=== PATIENT | male | born 1940 | race Hispanic/Latino ===

== ENCOUNTER 2016-11-24 17:00 | Inpatient (IN) | payer MEDICARE, BC ==
[2016-11-24 17:00] VITALS: BMI 25.4
--- NOTE | 2016-11-24 17:15 | C.PDOC ---
History Of Present Illness <Madhavi Novoa - Last Filed: 11/24/16 18:21> <Hermes Oliveira - Last Filed: 11/24/16 20:34> 76 y/o male w/PMHx of CAD, arrhythmia, s/p PTCA, pacemaker, on Coumadin, presents to ED for evaluation of constipation since this morning. Patient states that he has been trying to pass hard stool "for hours, sitting on the toilet and pushing" and after that noticed some rectal bleeding. Pt sts, " passed a little bit of hard stool but still feel there is some there". Otherwise , denies fever, chills, CP, SON, palpitation, abdominal pain, nausea, vomiting, hematemesis, back pain, UTI sx. Ambulate to ED for evaluation, not in any apparent distress. (Madhavi Novoa) History Per: Patient History/Exam Limitations: no limitations Onset/Duration Of Symptoms: Hrs Current Symptoms Are (Timing): Still Present Severity: None Associated Symptoms: Constipation. denies: Fever, Chills, Nausea, Vomiting, Diarrhea, Back Pain Recent travel outside of the [place]: No <Madhavi Novoa - Last Filed: 11/24/16 18:21> <Hermes Oliveira - Last Filed: 11/24/16 20:34> Time Seen by Provider: 11/24/16 17:15 Chief Complaint (Nursing): GI Problem Past Medical History Reviewed: Historical Data, Nursing Documentation, Vital Signs - Medical History PMH: Atrial Fibrillation, Cardia Arrhythmia (a flutter), CHF, COPD, Diabetes, HTN, Rheumatoid Arthritis Surgical History: Appendectomy, Coronary Stent, Pacemaker Family History: States: Unknown Family Hx - Social History Hx Tobacco Use: Yes Hx Alcohol Use: No Hx Substance Use: No - Immunization History Hx Tetanus Toxoid Vaccination: No Hx Influenza Vaccination: Yes Hx Pneumococcal Vaccination: Yes <Madhavi Novoa - Last Filed: 11/24/16 18:21> Review Of Systems Except As Marked, All Systems Reviewed And Found Negative. Constitutional: Negative for: Fever, Chills Cardiovascular: Negative for: Chest Pain Respiratory: Negative for: Cough, Shortness of Breath, Wheezing Gastrointestinal: Positive for: Abdominal Pain, Constipation, Hematochezia ( scant rectal bleeding as per patient). Negative for: Nausea, Vomiting, Diarrhea Genitourinary: Negative for: Dysuria Skin: Negative for: Rash <Madhavi Novoa - Last Filed: 11/24/16 18:21> Physical Exam - Physical Exam Appears: Well, Non-toxic, No Acute Distress Skin: Normal Color, Warm, Dry Head: Normacephalic Eye(s): bilateral: PERRL Nose: No Flaring Oral Mucosa: Moist Tongue: Normal Appearing Lips: Normal Appearing Throat: No Erythema, No Exudate Neck: Normal ROM, Supple Chest: Symmetrical Cardiovascular: Rhythm Regular, No Friction Rub, No JVD Respiratory: No Rales, No Rhonchi, No Wheezing Gastrointestinal/Abdominal: Soft, No Tenderness, No Distention, No Guarding, No Rebound Rectal: Rectal Tone (good), No Maroon Stool, No Melena, No Blood Streaked Stool , No Hemorrhoids, No Mass, Other (no gross blood ) Back: No CVA Tenderness Extremity: No Pedal Edema, Capillary Refill (< 2 sec.) Neurological/Psych: Oriented x3, Normal Speech, Normal Cognition <Madhavi Novoa - Last Filed: 11/24/16 18:21> ED Course And Treatment - Laboratory Results Result Diagrams: 11/24/16 17:42 11/24/16 17:42 Lab Interpretation: Abnormal O2 Sat by Pulse Oximetry: 100 (RA) Pulse Ox Interpretation: Normal Progress Note: Initailly, pt received enema, hydration with IVF. Blood work review, noted marked leukocystosis. INR- 3.8- theraputic. case discussed with ED attending and CT abd/plevis w/IV contrast order. At 19:00, case discussed with and care transfer. CT abd/pelvis, re-eval, dispo- pending. <Madhavi Novoa - Last Filed: 11/24/16 18:21> - Laboratory Results Result Diagrams: 11/24/16 17:42 11/24/16 17:42 <Hermes Oliveira - Last Filed: 11/24/16 20:34> Disposition <Madhavi Novoa - Last Filed: 11/24/16 18:21> Discussed With : Lexus Petty-Kasia Comment: accepted the pt on her service and took over the care at 8:30 PM Doctor Will See Patient In The: Hospital Counseled Patient/Family Regarding: Studies Performed, Diagnosis - Disposition Disposition Time: 19:00 - POA Present On Arrival: None <Hermes Oliveira - Last Filed: 11/24/16 20:34> - Disposition Disposition: HOSPITALIZED Condition: FAIR Forms: [facility] (Botswanan) - Clinical Impression Clinical Impression: Abdominal pain, Constipation, Rectal bleed, Acute diverticulitis - PA / CLINICAL APPEALS REVIEWER / Resident Statement MD/DO has reviewed & agrees with the documentation as recorded. - Scribe Statement The provider has reviewed the documentation as recorded by the Scribe <Madhavi Novoa - Last Filed: 11/24/16 18:21> <Hermes Oliveira - Last Filed: 11/24/16 20:34> - Scribe Statement Chetan Desai All medical record entries made by the Scribe were at my direction and personally dictated by me. I have reviewed the chart and agree that the record accurately reflects my personal performance of the history, physical exam, medical decision making, and the department course for this patient. I have also personally directed, reviewed, and agree with the discharge instructions and disposition.omar (Madhavi Novoa) Physician Patient Turnover Patient Signed Over To: Hermes Oliveira Handoff Comments: CT abd/pelvis, re-eavluation, disposition <Madhavi Novoa - Last Filed: 11/24/16 18:21> Decision To Admit <Madhavi Novoa - Last Filed: 11/24/16 18:21> - Pt Status Changed To: Hospital Disposition Of: Inpatient - Admit Certification Admit to Inpatient:: After my assessment, the patient will require hospitalization for at least two midnights. This is because of the severity of symptoms shown, intensity of services needed, and/or the medical risk in this patient being treated as an outpatient. - InPatient: Physician Admission Certification:: After my assessment, the patient will require hospitalization for at least two midnights. This is because of the severity of symptoms shown, intensity of services needed, and/or the medical risk in this patient being treated as an outpatient. - . Bed Request Type: Regular Admitting Physician: Lexus Herman <Hermes Oliveira - Last Filed: 11/24/16 20:34> - . Patient Diagnosis: Abdominal pain, Constipation, Rectal bleed, Acute diverticulitis
[2016-11-24] MEDS ORDERED: Sodium Chloride 0.9% 1,000 ML IV ONE (17:43)
[2016-11-24 17:51] LABS: BASO # 0.1 K/uL (0.0-0.2); BASO % 0.6 % (0.0-2.0); EOS # 0.2 K/uL (0.0-0.7); EOS % 1.1 % (0.0-4.0); HEMATOCRIT 42.3 % (35.0-51.0); LYMPH # 1.8 K/uL (1.0-4.3); LYMPH % 8.8 % (20.0-40.0); MEAN CELL VOLUME 92.1 fL (80.0-94.0); MEAN CORPUSCULAR HEMOGLOBIN 31.3 pg (27.0-31.0); MEAN PLATELET VOLUME 8.1 fL (7.2-11.7); MONO % 4.9 % (0.0-10.0); PLATELET COUNT 256 K/uL (130-400); RED CELL DISTRIBUTION WIDTH 13.6 % (11.5-14.5); WHITE BLOOD COUNT 20.6 K/uL (4.8-10.8)
[2016-11-24] MEDS ORDERED: Sodium Chloride 0.9% 1,000 ML ONE (17:54)
[2016-11-24 17:55] LABS: INR 3.8
[2016-11-24 17:58] LABS: CHLORIDE 103 mmol/L (98-107)
[2016-11-24 17:59] LABS: POTASSIUM 4.4 mmol/L (3.6-5.2); SODIUM 142 mmol/L (132-148)
[2016-11-24 18:01] LABS: ALB/GLOB RATIO 1.1 (1.0-2.1); ALKALINE PHOSPHATASE 58 U/L (38-126); AST/SGOT 32 U/L (17-59); BILIRUBIN,TOTAL 0.7 mg/dL (0.2-1.3); BLOOD UREA NITROGEN 28 mg/dL (9-20); CARBON DIOXIDE 29 mmol/L (22-30); GFR AFRICAN-AMERICAN > 60
[2016-11-24 18:02] LABS: ALT/SGPT 29 U/L (21-72); CALCIUM 10.3 mg/dl (8.6-10.4); GLUCOSE,RANDOM 99 mg/dL (75-110)
[2016-11-24 18:18] LABS: URINE BILIRUBIN NEGATIVE (NEGATIVE); URINE BLOOD NEGATIVE (NEGATIVE); URINE CALCIUM OXALATE CRYSTALS OCC /hpf (<OCC); URINE COLOR Yellow (YELLOW); URINE GLUCOSE (UA) NORMAL (Normal); URINE KETONE TRACE mg/dL (NEGATIVE); URINE LEUKOCYTE ESTERASE NEG Leu/uL (Negative); URINE PROTEIN 1+ mg/dL (NEGATIVE); URINE UROBILINOGEN NORMAL mg/dL (0.2-1.0); WBC URINE < 1 /hpf (0-5)
[2016-11-24 19:10] LABS: EOSINOPHIL 3 % (0-4); NEUTROPHIL 73 % (50-75); TOTAL CELLS COUNTED 100
[2016-11-24] MEDS ORDERED: Iohexol 350mg/ml 100 ML ONE (19:10)
[2016-11-24 19:11] LABS: LARGE PLATELETS PRESENT; PLATELET CLUMPS PRESENT
--- NOTE | 2016-11-24 20:26 | CT ---
EXAM: CT Abdomen and Pelvis With Intravenous Contrast EXAM DATE/TIME: Exam ordered 11/24/2016 6:19 PM CLINICAL HISTORY: 76 years old, male; Pain; Abdominal pain; Flank; Left lower quadrant (llq); Additional info: Llq pain TECHNIQUE: Axial computed tomography images of the abdomen and pelvis with intravenous contrast. All CT scans at this facility use one or more dose reduction techniques, viz.: automated exposure control; ma/kV adjustment per patient size (including targeted exams where dose is matched to indication; i.e. head); or iterative reconstruction technique. Coronal and sagittal reformatted images were created and reviewed. CONTRAST: 100 mL of omnipaque 350 administered intravenously. COMPARISON: No relevant prior studies available. FINDINGS: Lower thorax: There's a small hiatal hernia. A dual chamber pacemaker via left subclavian approach is noted. ABDOMEN: Liver: Unremarkable. No mass. Gallbladder and bile ducts: Unremarkable. No calcified stones. No ductal dilation. Pancreas: There is fatty replacement of the pancreas. No ductal dilation. Spleen: Unremarkable. No splenomegaly. Adrenals: Unremarkable. No mass. Kidneys and ureters: Unremarkable. No solid mass. No hydronephrosis. Stomach and bowel: There are scattered colonic diverticula. Minimal inflammatory changes noted around a section of the descending colon distally in the region of the diverticula. No obstruction. No mucosal thickening. Appendix: No findings to suggest acute appendicitis. PELVIS: Bladder: Unremarkable. No mass. Reproductive: The prostate measures 4.7 x 3.6 x 4.6 cm. ABDOMEN and PELVIS: Intraperitoneal space: No free air. No significant fluid collection. Bones/joints:There is a mild dextroscoliosis of the thoracolumbar spine with secondary degenerative changes. Increased density noted within the femoral heads bilaterally suggests underlying osteonecrosis. Soft tissues: There is a small left inguinal hernia containing fat. Vasculature: A coarse calcification is noted in the right hemipelvis (series 3 image 150).. This could represent a calcified lymph node or an area of old fat necrosis. Unremarkable. No abdominal aortic aneurysm. Lymph nodes: Unremarkable. No enlarged lymph nodes. IMPRESSION: 1. Left inguinal hernia containing a knuckle of fat. 2. Very mild inflammatory change surrounding a segment of the descending colon where there is a diverticula. This could represent a mild diverticulitis. 3. Small hiatal hernia. 4. Increased density of the femoral heads bilaterally suggests underlying osteonecrosis. Images were attached to this report and are available at [email or web address]
[2016-11-24] MEDS ORDERED: Ciprofloxacin 400mg/200ml D5W 400 MG/200 ML BAG IVPB STA (20:28)
[2016-11-24] MEDS ORDERED: metroNIDAZOLE IV 500 mg/100 ml 500 MG/100 ML BAG IVPB STA (20:31)
[2016-11-24] MEDS ORDERED: Ciprofloxacin 400mg/200ml D5W 400 MG/200 ML BAG IVPB ONE (21:08)
[2016-11-24] MEDS ORDERED: metroNIDAZOLE IV 500 mg/100 ml 500 MG/100 ML BAG ONE (21:09)
[2016-11-24] MEDS ORDERED: Sodium Chloride 0.45% 1,000 ML IV ONE (21:23)
[2016-11-24] MEDS: Sodium Chloride 0.45% 1,000 ML IV SCH (23:30)
[2016-11-25 03:51] LABS: RBC URINE 7 /hpf (0-3); URINE BILIRUBIN NEGATIVE (NEGATIVE); URINE BLOOD NEGATIVE (NEGATIVE); URINE COLOR Yellow (YELLOW); URINE GLUCOSE (UA) 1+ mg/dL (Normal); URINE KETONE NEGATIVE (NEGATIVE); URINE LEUKOCYTE ESTERASE NEG Leu/uL (Negative); URINE PROTEIN NEGATIVE (NEGATIVE); URINE UROBILINOGEN NORMAL mg/dL (0.2-1.0); WBC URINE < 1 /hpf (0-5)
[2016-11-25] MEDS: metroNIDAZOLE IV 500 mg/100 ml 500 MG/100 ML BAG IVPB SCH ×3 (05:30→22:35)
[2016-11-25 07:36] LABS: INR 4.9
[2016-11-25 07:43] LABS: BASO # 0.1 K/uL (0.0-0.2); BASO % 0.6 % (0.0-2.0); EOS # 0.1 K/uL (0.0-0.7); EOS % 1.1 % (0.0-4.0); HEMATOCRIT 35.6 % (35.0-51.0); LYMPH # 2.1 K/uL (1.0-4.3); LYMPH % 19.4 % (20.0-40.0); MEAN CORPUSCULAR HEMOGLOBIN 31.5 pg (27.0-31.0); MEAN PLATELET VOLUME 8.3 fL (7.2-11.7); MONO # 1.1 K/uL (0.0-0.8); MONO % 9.9 % (0.0-10.0); RED CELL DISTRIBUTION WIDTH 13.7 % (11.5-14.5); WHITE BLOOD COUNT 10.6 K/uL (4.8-10.8)
[2016-11-25 07:53] LABS: MEAN CELL VOLUME 90.1 fL (80.0-94.0)
[2016-11-25 07:54] LABS: CHLORIDE 103 mmol/L (98-107); POTASSIUM 3.7 mmol/L (3.6-5.2); SODIUM 138 mmol/L (132-148)
[2016-11-25 07:56] LABS: CARBON DIOXIDE 25 mmol/L (22-30); GFR AFRICAN-AMERICAN > 60
[2016-11-25 07:57] LABS: ALB/GLOB RATIO 1.1 (1.0-2.1); ALKALINE PHOSPHATASE 40 U/L (38-126); ALT/SGPT 29 U/L (21-72); AST/SGOT 27 U/L (17-59); BILIRUBIN,TOTAL 0.8 mg/dL (0.2-1.3); BLOOD UREA NITROGEN 20 mg/dL (9-20); CALCIUM 9.3 mg/dl (8.6-10.4); GLUCOSE,RANDOM 110 mg/dL (75-110); TOTAL PROTEIN 6.4 g/dL (6.3-8.3)
[2016-11-25] MEDS: Ciprofloxacin 400mg/200ml D5W 400 MG/200 ML BAG IVPB SCH ×2 (09:34→21:05)
[2016-11-25] MEDS ORDERED: BRINZOLAMIDE OU SCH (10:00)
[2016-11-25] MEDS ORDERED: TRAVATAN OU SCH (10:00)
--- NOTE | 2016-11-25 10:28 | RAD ---
HISTORY: COMPARISON: 04/20/2016. TECHNIQUE: Chest PA and lateral FINDINGS: LINES AND TUBES: None. LUNG AND PLEURA: The lungs are hyperinflated and there is peribronchial thickening with chronic changes in both lungs. There is mild pulmonary venous congestion. HEART AND MEDIASTINUM: The heart is not enlarged. There is prominent central vasculature. There is a left-sided dual lead transvenous permanent pacing device. The hilar and mediastinal contours are within normal limits. SKELETAL STRUCTURES: The bony structures are within normal limits for the patient's age. VISUALIZED UPPER ABDOMEN: Normal. OTHER FINDINGS: None. IMPRESSION: COPD. No acute findings. Mild pulmonary venous congestion. Upper
[2016-11-25] MEDS: Sodium Chloride 0.45% 1,000 ML IV SCH (12:18)
[2016-11-25] MEDS ORDERED: Albuterol HFA 90 mcg/actuation (8 g) INH PRN (15:59)
[2016-11-25] MEDS ORDERED: Sodium Chloride 0.45% 1,000 ML IV SCH (16:00)
--- NOTE | 2016-11-25 16:19 | CP.PCM.HP ---
History of Present Illness - History of Present Illness History of Present Illness: This is a 76 y/o male with history of CAD,s/p multiple stents in the past, s/p a few ablations for paroxysmal atrial fibrillation, diabetes mellitus, hypertension and COPD who was admitted through the ER because of abdominal pain. Patient claims that he woke up early on the morning of admission because of rectal discomfort. He claims that he felt very constipated but nothing came out despite 2 enemas at home. He also felt some abdominal pain, nausea and vomited 2x. He denies any fever, no chest pain, no palpitations but did feel slightly slightly short of breath. He thus went to the ER for further evaluation. In the ER he had some blood test and CT Scan of the abdomen that showed a markedly elevated WBC count and a possibility of acute diverticulitis on the CT Scan and was then admitted. Present on Admission - Present on Admission Any Indicators Present on Admission: No History Surgical Site Infection Following: None Review of Systems - Review of Systems All systems: reviewed and no additional remarkable complaints except - Constitutional Constitutional: Weight Loss - Cardiovascular Cardiovascular: Chest Pain, Dyspnea on Exertion, Palpitations, Rapid Heart Rate - Respiratory Respiratory: Dyspnea on Exertion - Gastrointestinal Gastrointestinal: Abdominal Pain, Constipation, Nausea, Vomiting - Genitourinary Genitourinary: Change in Urinary Stream Past Patient History - Infectious Disease Hx of Infectious Diseases: None - Past Medical History & Family History Past Medical History?: Yes - Past Social History Smoking Status: Heavy Smoker > 10 Cigarettes Daily Alcohol: Social Drugs: Denies Home Situation {Lives}: Alone - CARDIAC Hx Cardiac Disorders: Yes Hx Atrial Fibrillation: Yes Hx Cardia Arrhythmia: Yes (a flutter) Hx Congestive Heart Failure: Yes Hx Heart Attack: Yes Hx Hypertension: Yes Hx Pacemaker: Yes - PULMONARY Hx Respiratory Disorders: Yes Hx Chronic Obstructive Pulmonary Disease (COPD): Yes Hx Emphysema: Yes - NEUROLOGICAL Hx Neurological Disorder: No - HEENT Hx HEENT Problems: Yes Hx Cataracts: Yes (had sx left eye 12-08-00) Hx Glaucoma: Yes - RENAL Hx Chronic Kidney Disease: No Hx Dialysis: No - ENDOCRINE/METABOLIC Hx Endocrine Disorders: Yes Hx Diabetes Mellitus Type 1: Yes Hx Diabetes Mellitus Type 2: Yes - HEMATOLOGICAL/ONCOLOGICAL Hx Blood Disorders: No - MUSCULOSKELETAL/RHEUMATOLOGICAL Hx Falls: No - GASTROINTESTINAL Hx Gastrointestinal Disorders: Yes Hx Constipation: Yes Hx Diverticulitis: Yes Hx Gall Bladder Disease: Yes Hx Gastritis: Yes Hx Nausea: Yes Hx Vomiting: Yes - GENITOURINARY/GYNECOLOGICAL Hx Prostate Problems: Yes - PSYCHIATRIC Hx Psychophysiologic Disorder: No Hx Substance Use: No - SURGICAL HISTORY Hx Surgeries: Yes Hx Appendectomy: Yes Hx Cataract Extraction: Yes Hx Cardiac Catheterization: Yes Hx Cholecystectomy: Yes Hx Coronary Stent: Yes Hx Eye Surgery: Yes - ANESTHESIA Hx Anesthesia: Yes Hx Anesthesia Reactions: No Meds Allergies/Adverse Reactions: Allergies Allergy/AdvReac Type Severity Reaction Status Date / Time Penicillins Allergy Verified 11/24/16 17:12 Physical Exam - Constitutional Appears: No Acute Distress - Head Exam Head Exam: NORMAL INSPECTION - Eye Exam Eye Exam: Normal appearance - ENT Exam ENT Exam: Mucous Membranes Moist - Neck Exam Neck exam: Positive for: Normal Inspection - Respiratory Exam Respiratory Exam: Clear to Auscultation Bilateral, NORMAL BREATHING PATTERN - Cardiovascular Exam Cardiovascular Exam: REGULAR RHYTHM, +S1, +S2 - GI/Abdominal Exam GI & Abdominal Exam: Normal Bowel Sounds, Soft, Tenderness - Rectal Exam Rectal Exam: NORMAL INSPECTION Additional comments: no mass felt, rectal ampullae empty, no gross bleeding noted in the stools - Extremities Exam Extremities exam: Positive for: normal inspection, pedal pulses present - Back Exam Back exam: NORMAL INSPECTION - Neurological Exam Neurological exam: Alert, Normal Gait, Oriented x3, Reflexes Normal - Psychiatric Exam Psychiatric exam: Normal Affect, Normal Mood - Skin Skin Exam: Dry, Intact, Normal Color, Warm Results - Vital Signs Recent Vital Signs: Last Vital Signs Temp 98.1 F 11/25/16 08:00 Pulse 83 11/25/16 08:00 Resp 20 11/25/16 08:00 BP 112/61 11/25/16 08:00 Pulse Ox 99 11/25/16 08:00 - Labs Result Diagrams: 11/25/16 07:10 11/25/16 07:10 Labs: Laboratory Results - last 24 hr 11/24/16 11/24/16 11/25/16 21:18 22:01 02:22 WBC RBC Hgb Hct MCV MCH MCHC RDW Plt Count MPV Neut % (Auto) Lymph % (Auto) Bullock % (Auto) Eos % (Auto) Baso % (Auto) Neut # Lymph # Bullock # Eos # Baso # PT INR Sodium Potassium Chloride Carbon Dioxide Anion Gap BUN Creatinine Est GFR ( Amer) Est GFR (Non-Af Amer) POC Glucose (mg/dL) 41 L 152 H 225 H Random Glucose Hemoglobin A1c Calcium Total Bilirubin AST ALT Alkaline Phosphatase Total Protein Albumin Globulin Albumin/Globulin Ratio Urine Color Urine Clarity Urine pH Ur Specific [place] Urine Protein Urine Glucose (UA) Urine Ketones Urine Blood Urine Nitrate Urine Bilirubin Urine Urobilinogen Ur Leukocyte Esterase Urine WBC (Auto) Urine RBC (Auto) Ur Squamous Epith Cells 11/25/16 11/25/16 11/25/16 03:45 07:10 07:10 WBC 10.6 RBC 3.95 L Hgb 12.5 Hct 35.6 MCV 90.1 D MCH 31.5 H MCHC 35.0 RDW 13.7 Plt Count 211 MPV 8.3 Neut % (Auto) 69.0 Lymph % (Auto) 19.4 L Bullock % (Auto) 9.9 Eos % (Auto) 1.1 Baso % (Auto) 0.6 Neut # 7.3 H Lymph # 2.1 Bullock # 1.1 H Eos # 0.1 Baso # 0.1 PT 58.3 H* D INR 4.9 D Sodium Potassium Chloride Carbon Dioxide Anion Gap BUN Creatinine Est GFR ( Amer) Est GFR (Non-Af Amer) POC Glucose (mg/dL) Random Glucose Hemoglobin A1c Calcium Total Bilirubin AST ALT Alkaline Phosphatase Total Protein Albumin Globulin Albumin/Globulin Ratio Urine Color Yellow Urine Clarity Clear Urine pH 5.0 Ur Specific [place] > 1.060 H Urine Protein Negative Urine Glucose (UA) 1+ H Urine Ketones Negative Urine Blood Negative Urine Nitrate Negative Urine Bilirubin Negative Urine Urobilinogen Normal Ur Leukocyte Esterase Neg Urine WBC (Auto) < 1 Urine RBC (Auto) 7 H Ur Squamous Epith Cells < 1 11/25/16 11/25/16 11/25/16 07:10 07:10 07:21 WBC RBC Hgb Hct MCV MCH MCHC RDW Plt Count MPV Neut % (Auto) Lymph % (Auto) [place] % (Auto) Eos % (Auto) Baso % (Auto) Neut # Lymph # Bullock # Eos # Baso # PT INR Sodium 138 Potassium 3.7 Chloride 103 Carbon Dioxide 25 Anion Gap 14 BUN 20 Creatinine 0.9 Est GFR ( Amer) > 60 Est GFR (Non-Af Amer) > 60 POC Glucose (mg/dL) 101 Random Glucose 110 Hemoglobin A1c 6.9 H Calcium 9.3 Total Bilirubin 0.8 AST 27 ALT 29 Alkaline Phosphatase 40 Total Protein 6.4 Albumin 3.3 L D Globulin 3.1 Albumin/Globulin Ratio 1.1 Urine Color Urine Clarity Urine pH Ur Specific [place] Urine Protein Urine Glucose (UA) Urine Ketones Urine Blood Urine Nitrate Urine Bilirubin Urine Urobilinogen Ur Leukocyte Esterase Urine WBC (Auto) Urine RBC (Auto) Ur Squamous Epith Cells 11/25/16 11:30 WBC RBC Hgb Hct MCV MCH MCHC RDW Plt Count MPV Neut % (Auto) Lymph % (Auto) Bull[place] % (Auto) Eos % (Auto) Baso % (Auto) Neut # Lymph # Bull[place] # Eos # Baso # PT INR Sodium Potassium Chloride Carbon Dioxide Anion Gap BUN Creatinine Est GFR ( Amer) Est GFR (Non-Af Amer) POC Glucose (mg/dL) 199 H Random Glucose Hemoglobin A1c Calcium Total Bilirubin AST ALT Alkaline Phosphatase Total Protein Albumin Globulin Albumin/Globulin Ratio Urine Color Urine Clarity Urine pH Ur Specific [place] Urine Protein Urine Glucose (UA) Urine Ketones Urine Blood Urine Nitrate Urine Bilirubin Urine Urobilinogen Ur Leukocyte Esterase Urine WBC (Auto) Urine RBC (Auto) Ur Squamous Epith Cells Assessment & Plan - Assessment and Plan (Free Text) Assessment: 1) Acute Diverticulitis- Patient started on IV antibiotics- Cipro and Flagyl. Repeat WBC today is much lower. Started on liquid diet and tolerated well. Diet advanced to soft 1800 calorie diet. Will get GI consult. 2) Rectal Bleeding- no active bleeding at this time- probably due to Coumadin 3) CAD/ Cardiac arrhythmia- seems stable at this time. EKG not done yet but patient is asymtomatic from cardiac viewpoint at this time. 4) Diabetes Mellitus- on Accucheck and diabetic diet. Restarted on Glimepiride. May need to restart on insulin as previously given. 5) Hypertension- controlled on current meds 6) COPD- stable at this time 7) Elevated BUN with normal creatinine may be due to dehydration/hypovolemia Decision To Admit - Pt Status Changed To: Hospital Disposition Of: Inpatient - Admit Certification Admit to Inpatient:: After my assessment, the patient will require hospitalization for at least two midnights. This is because of the severity of symptoms shown, intensity of services needed, and/or the medical risk in this patient being treated as an outpatient. - InPatient: Physician Admission Certification:: After my assessment, the patient will require hospitalization for at least two midnights. This is because of the severity of symptoms shown, intensity of services needed, and/or the medical risk in this patient being treated as an outpatient. - . Bed Request Type: Regular Admitting Physician: Lexus Herman
--- NOTE | 2016-11-25 18:05 | CP.PCM.CON ---
History of Present Illness - History of Present Illness History of Present Illness: COVERING DR LANGLEY 76 yo W male well known to Dr Langley who reports awakening yesterday with severe constipation. He typically has hard bowel movements but goes daily. He strained to defecate and then used two enemas. This caused him to have two episodes of vomiting and noted increasing amounts of BRBPR dripping on the floor. The stool came out brown. He experienced rectal pain but no abdominal pain. Patient noted to have white count of 20K and CT scan showed a right inguinal hernia and mild stranding in descending colon in an area of diverticulosis. Patient feeling better and denies any abdominal pain. Still with pain in rectum. No further bleeding. Reports colonoscopy done around five years ago by Dr Langley. Review of Systems - Cardiovascular Cardiovascular: absent: Chest Pain, Chest Pain at Rest, Dyspnea, Dyspnea on Exertion, Edema - Respiratory Respiratory: absent: Cough, Dyspnea - Gastrointestinal Gastrointestinal: As Per HPI, Constipation, Hematochezia - Genitourinary Genitourinary: absent: Flank Pain, Hematuria, Pyuria Past Patient History - Infectious Disease Hx of Infectious Diseases: None - Past Medical History & Family History Past Medical History?: Yes - Past Social History Smoking Status: Heavy Smoker > 10 Cigarettes Daily Alcohol: None Drugs: Denies - CARDIAC Hx Cardiac Disorders: Yes Hx Atrial Fibrillation: Yes Hx Cardia Arrhythmia: Yes (a flutter) Hx Congestive Heart Failure: Yes Hx Hypertension: Yes Hx Pacemaker: Yes - PULMONARY Hx Respiratory Disorders: Yes Hx Chronic Obstructive Pulmonary Disease (COPD): Yes - NEUROLOGICAL Hx Neurological Disorder: No - HEENT Hx HEENT Problems: Yes Hx Cataracts: Yes (had sx left eye 12-08-00) Hx Glaucoma: Yes - RENAL Hx Chronic Kidney Disease: No Hx Dialysis: No - ENDOCRINE/METABOLIC Hx Endocrine Disorders: Yes Hx Diabetes Mellitus Type 1: Yes Hx Diabetes Mellitus Type 2: Yes - HEMATOLOGICAL/ONCOLOGICAL Hx Cirrhosis: No Hx Hepatitis A: No Hx Hepatitis B: No Hx Hepatitis C: No Hx Human Immunodeficiency Virus (HIV): No - MUSCULOSKELETAL/RHEUMATOLOGICAL Hx Falls: No - GASTROINTESTINAL Hx Clostridium Difficile: No Hx Colitis: No Hx Colostomy: No Hx Constipation: No Hx Crohn's Disease: No Hx Diarrhea: No Hx Diverticulitis: No Hx Esophageal Varices: No Hx Fatty Liver Disease: No Hx Gall Bladder Disease: No Hx Gastritis: No Hx Gastroesophageal Reflux: No Hx Hemorrhoids: No Hx Ileostomy: No Hx Irritable Bowel: No Hx Liver Failure: No Hx Nausea: No Hx Pancreatitis: No HX Swallowing Problems: No Hx Ulcer: No Hx Vomiting: No - PSYCHIATRIC Hx Substance Use: No - SURGICAL HISTORY Hx Surgeries: Yes Hx Appendectomy: Yes Hx Coronary Stent: Yes - ANESTHESIA Hx Anesthesia: Yes Hx Anesthesia Reactions: No Meds Allergies/Adverse Reactions: Allergies Allergy/AdvReac Type Severity Reaction Status Date / Time Penicillins Allergy Verified 11/24/16 17:12 - Medications Medications: Current Medications Albuterol (Ventolin Hfa 90 Mcg/Actuation (8 G)) 2 puff INH RQ6 PRN PRN Reason: Shortness of Breath Dorzolamide HCl (Trusopt) 0 ml OU BID [facility] Glimepiride (Amaryl) 4 mg PO BID [facility] Last Admin: 11/25/16 09:33 Dose: 4 mg Ciprofloxacin (Cipro 400mg/200ml Dsw) 400 mg in 200 mls @ 133 mls/hr IVPB Q12H [facility] Last Admin: 11/25/16 09:34 Dose: 133 mls/hr Metronidazole (Flagyl) 500 mg in 100 mls @ 100 mls/hr IVPB Q8 [facility] Last Admin: 11/25/16 14:58 Dose: 100 mls/hr Sodium Chloride (Sodium Chloride 0.45%) 1,000 mls @ 42 mls/hr IV .[id number] [facility] Latanoprost (Xalatan Opht) 0 ml OU HS [facility] Losartan Potassium (Cozaar) 100 mg PO DAILY [facility] Last Admin: 11/25/16 09:33 Dose: 100 mg Nebivolol (Bystolic) 10 mg PO DAILY [facility] Last Admin: 11/25/16 11:10 Dose: 10 mg Pneumococcal Polyvalent Vaccine (Pneumovax 23 Vaccine) 0.5 ml IM .ONCE ONE Stop: 11/26/16 10:01 Rosuvastatin Calcium (Crestor) 5 mg PO HS [facility] Fluticasone/Salmeterol (Advair Diskus 250/50) 1 puff INH RQ12 [facility] Physical Exam - Constitutional Appears: No Acute Distress - Head Exam Head Exam: ATRAUMATIC, NORMOCEPHALIC - Eye Exam Eye Exam: EOMI, PERRL - Respiratory Exam Respiratory Exam: Clear to Auscultation Bilateral, NORMAL BREATHING PATTERN - Cardiovascular Exam Cardiovascular Exam: REGULAR RHYTHM, +S1 - GI/Abdominal Exam GI & Abdominal Exam: Normal Bowel Sounds, Soft. absent: Distended, Mass, Organomegaly, Rebound, Tenderness - Rectal Exam Rectal Exam: NORMAL INSPECTION Additional comments: no blood or mass palapable. - Extremities Exam Extremities exam: Positive for: normal inspection. Negative for: calf tenderness, pedal edema - Neurological Exam Neurological exam: Alert, CN II-XII Intact, Oriented x3 - Psychiatric Exam Psychiatric exam: Normal Affect, Normal Mood - Skin Skin Exam: Dry, Warm Results - Vital Signs Recent Vital Signs: Last Vital Signs Temp 97.9 F 11/25/16 16:00 Pulse 85 11/25/16 16:00 Resp 20 11/25/16 16:00 BP 131/68 11/25/16 16:00 Pulse Ox 100 11/25/16 16:00 - Labs Result Diagrams: 11/26/16 08:15 11/26/16 08:15 Labs: Laboratory Results - last 24 hr 11/24/16 11/24/16 11/25/16 21:18 22:01 02:22 WBC RBC Hgb Hct MCV MCH MCHC RDW Plt Count MPV Neut % (Auto) Lymph % (Auto) [place] % (Auto) Eos % (Auto) Baso % (Auto) Neut # Lymph # [place] # Eos # Baso # PT INR Sodium Potassium Chloride Carbon Dioxide Anion Gap BUN Creatinine Est GFR ( Amer) Est GFR (Non-Af Amer) POC Glucose (mg/dL) 41 L 152 H 225 H Random Glucose Hemoglobin A1c Calcium Total Bilirubin AST ALT Alkaline Phosphatase Total Protein Albumin Globulin Albumin/Globulin Ratio Urine Color Urine Clarity Urine pH Ur Specific [place] Urine Protein Urine Glucose (UA) Urine Ketones Urine Blood Urine Nitrate Urine Bilirubin Urine Urobilinogen Ur Leukocyte Esterase Urine WBC (Auto) Urine RBC (Auto) Ur Squamous Epith Cells 11/25/16 11/25/16 11/25/16 03:45 07:10 07:10 WBC 10.6 RBC 3.95 L Hgb 12.5 Hct 35.6 MCV 90.1 D MCH 31.5 H MCHC 35.0 RDW 13.7 Plt Count 211 MPV 8.3 Neut % (Auto) 69.0 Lymph % (Auto) 19.4 L Island % (Auto) 9.9 Eos % (Auto) 1.1 Baso % (Auto) 0.6 Neut # 7.3 H Lymph # 2.1 Island # 1.1 H Eos # 0.1 Baso # 0.1 PT 58.3 H* D INR 4.9 D Sodium Potassium Chloride Carbon Dioxide Anion Gap BUN Creatinine Est GFR ( Amer) Est GFR (Non-Af Amer) POC Glucose (mg/dL) Random Glucose Hemoglobin A1c Calcium Total Bilirubin AST ALT Alkaline Phosphatase Total Protein Albumin Globulin Albumin/Globulin Ratio Urine Color Yellow Urine Clarity Clear Urine pH 5.0 Ur Specific [place] > 1.060 H Urine Protein Negative Urine Glucose (UA) 1+ H Urine Ketones Negative Urine Blood Negative Urine Nitrate Negative Urine Bilirubin Negative Urine Urobilinogen Normal Ur Leukocyte Esterase Neg Urine WBC (Auto) < 1 Urine RBC (Auto) 7 H Ur Squamous Epith Cells < 1 11/25/16 11/25/16 11/25/16 07:10 07:10 07:21 WBC RBC Hgb Hct MCV MCH MCHC RDW Plt Count MPV Neut % (Auto) Lymph % (Auto) Island % (Auto) Eos % (Auto) Baso % (Auto) Neut # Lymph # [place] # Eos # Baso # PT INR Sodium 138 Potassium 3.7 Chloride 103 Carbon Dioxide 25 Anion Gap 14 BUN 20 Creatinine 0.9 Est GFR ( Amer) > 60 Est GFR (Non-Af Amer) > 60 POC Glucose (mg/dL) 101 Random Glucose 110 Hemoglobin A1c 6.9 H Calcium 9.3 Total Bilirubin 0.8 AST 27 ALT 29 Alkaline Phosphatase 40 Total Protein 6.4 Albumin 3.3 L D Globulin 3.1 Albumin/Globulin Ratio 1.1 Urine Color Urine Clarity Urine pH Ur Specific [place] Urine Protein Urine Glucose (UA) Urine Ketones Urine Blood Urine Nitrate Urine Bilirubin Urine Urobilinogen Ur Leukocyte Esterase Urine WBC (Auto) Urine RBC (Auto) Ur Squamous Epith Cells 11/25/16 11/25/16 11:30 17:11 WBC RBC Hgb Hct MCV MCH MCHC RDW Plt Count MPV Neut % (Auto) Lymph % (Auto) Island % (Auto) Eos % (Auto) Baso % (Auto) Neut # Lymph # [place] # Eos # Baso # PT INR Sodium Potassium Chloride Carbon Dioxide Anion Gap BUN Creatinine Est GFR ( Amer) Est GFR (Non-Af Amer) POC Glucose (mg/dL) 199 H 134 H Random Glucose Hemoglobin A1c Calcium Total Bilirubin AST ALT Alkaline Phosphatase Total Protein Albumin Globulin Albumin/Globulin Ratio Urine Color Urine Clarity Urine pH Ur Specific [place] Urine Protein Urine Glucose (UA) Urine Ketones Urine Blood Urine Nitrate Urine Bilirubin Urine Urobilinogen Ur Leukocyte Esterase Urine WBC (Auto) Urine RBC (Auto) Ur Squamous Epith Cells - Imaging and Cardiology CT scan - abdomen Status: Image reviewed by me, Report reviewed by me CT scan - pelvis Status: Image reviewed by me, Report reviewed by me Assessment & Plan (1) Leukocytosis Assessment and Plan: Improving since antibiotics begun. Likely due to diverticulitis. Status: Acute (2) Coumadin toxicity Assessment and Plan: Hold Coumadin as per Dr Petty. Status: Acute (3) Acute diverticulitis Assessment and Plan: Elevated WBC and CT Scan consistent with acute diverticulitis. ?Rectal trauma/ fissure/ruptured hemorrhoid? (none visible to exam) Would make NPO or clear liquid diet only until pain free Agree with IV antibiotics. Would prefer Zosyn to Cipro but white count improving so will maintain current Rx. Status: Acute (4) Hematochezia Assessment and Plan: Possible due to anal fissure or ruptured hemorrhoid from straining and constipation/enema admin in setting of elevated INR. Monitor for drop in H/H or recurrence. Would defer colonoscopy at this time based on CT findings. No free air or perforation noted. Status: Acute (5) Proctalgia Assessment and Plan: Rectal pain likely due to trauma from straining/constipation/enema administration. No evidence of perforation seen on CT scan. Clinically improving. Status: Acute
[2016-11-25] MEDS ORDERED: Fluticasone-Salmeterol 250-50mcg Diskus INH SCH (20:00)
[2016-11-25] MEDS: Dorzolamide 2% Opht Sol 10ml OU SCH (22:30)
[2016-11-25] MEDS: Latanoprost 2.5 ml Opht Soln OU SCH (22:35)
[2016-11-26] MEDS: metroNIDAZOLE IV 500 mg/100 ml 500 MG/100 ML BAG IVPB SCH ×3 (05:30→21:29)
[2016-11-26 08:28] LABS: BASO # 0.1 K/uL (0.0-0.2); BASO % 0.8 % (0.0-2.0); EOS # 0.5 K/uL (0.0-0.7); HEMATOCRIT 36.2 % (35.0-51.0); LYMPH # 1.8 K/uL (1.0-4.3); LYMPH % 20.3 % (20.0-40.0); MEAN CELL VOLUME 91.2 fL (80.0-94.0); MEAN CORPUSCULAR HEMOGLOBIN 31.4 pg (27.0-31.0); MEAN CORPUSCULAR HGB CONC 34.5 g/dL (33.0-37.0); MEAN PLATELET VOLUME 8.2 fL (7.2-11.7); MONO # 0.8 K/uL (0.0-0.8); MONO % 8.9 % (0.0-10.0); RED CELL DISTRIBUTION WIDTH 13.6 % (11.5-14.5); WHITE BLOOD COUNT 9.1 K/uL (4.8-10.8)
[2016-11-26 08:29] LABS: INR 3.6
[2016-11-26 08:48] LABS: CHLORIDE 104 mmol/L (98-107); SODIUM 139 mmol/L (132-148)
[2016-11-26 08:50] LABS: AST/SGOT 30 U/L (17-59); BILIRUBIN,TOTAL 0.9 mg/dL (0.2-1.3); CARBON DIOXIDE 24 mmol/L (22-30); GFR AFRICAN-AMERICAN > 60
[2016-11-26 08:51] LABS: ALB/GLOB RATIO 1.1 (1.0-2.1); ALKALINE PHOSPHATASE 43 U/L (38-126); ALT/SGPT 34 U/L (21-72); BLOOD UREA NITROGEN 18 mg/dL (9-20); CALCIUM 9.3 mg/dl (8.6-10.4); GLUCOSE,RANDOM 124 mg/dL (75-110); TOTAL PROTEIN 6.7 g/dL (6.3-8.3)
[2016-11-26] MEDS: Ciprofloxacin 400mg/200ml D5W 400 MG/200 ML BAG IVPB SCH ×2 (09:18→21:20)
[2016-11-26] MEDS ORDERED: Pneumococcal 23-Valent Vaccine IM ONE (10:00)
[2016-11-26] MEDS: Dorzolamide 2% Opht Sol 10ml OU SCH ×2 (10:25→18:21)
--- NOTE | 2016-11-26 13:28 | CP.PCM.PN ---
Subjective - Date & Time of Evaluation Date of Evaluation: 11/26/16 Time of Evaluation: 13:26 - Subjective Subjective: Patient still with some rectal discomfort but denies abdominal pain or bleeding Tolerating diet as of now. Leukocytosis has resolved. Objective - Vital Signs/Intake and Output Vital Signs (last 24 hours): Temp Pulse Resp BP Pulse Ox 98.5 F 67 20 136/73 98 11/26/16 08:26 11/26/16 08:26 11/26/16 08:26 11/26/16 08:26 11/26/16 08:26 Intake and Output: 11/26/16 11/26/16 06:59 18:59 Intake Total 1684 936 Output Total 600 1400 Balance 1084 -464 - Medications Medications: Current Medications Albuterol (Ventolin Hfa 90 Mcg/Actuation (8 G)) 2 puff INH RQ6 PRN PRN Reason: Shortness of Breath Dorzolamide HCl (Trusopt) 0 ml OU BID [facility] Last Admin: 11/26/16 10:25 Dose: 1 g Glimepiride (Amaryl) 4 mg PO BID [facility] Last Admin: 11/26/16 10:20 Dose: 4 mg Ciprofloxacin (Cipro 400mg/200ml Dsw) 400 mg in 200 mls @ 133 mls/hr IVPB Q12H [facility] Last Admin: 11/26/16 09:18 Dose: 133 mls/hr Metronidazole (Flagyl) 500 mg in 100 mls @ 100 mls/hr IVPB Q8 [facility] Last Admin: 11/26/16 05:30 Dose: 100 mls/hr Latanoprost (Xalatan Opht) 0 ml OU HS [facility] Last Admin: 11/25/16 22:35 Dose: 2.5 ml Losartan Potassium (Cozaar) 100 mg PO DAILY [facility] Last Admin: 11/26/16 10:17 Dose: 100 mg Nebivolol (Bystolic) 10 mg PO DAILY [facility] Last Admin: 11/26/16 10:17 Dose: 10 mg Rosuvastatin Calcium (Crestor) 5 mg PO HS [facility] Last Admin: 11/25/16 23:33 Dose: 5 mg Fluticasone/Salmeterol (Advair Diskus 250/50) 1 puff INH RQ12 [facility] - Labs Labs: 11/26/16 08:15 11/26/16 08:15 PT 42.8 SECONDS (9.7-12.2) H* D 11/26/16 08:15 INR 3.6 D 11/26/16 08:15 APTT 51 SECONDS (21-34) H 11/24/16 17:42 - Constitutional Appears: No Acute Distress - Head Exam Head Exam: ATRAUMATIC, NORMOCEPHALIC - Eye Exam Eye Exam: EOMI, PERRL - Respiratory Exam Respiratory Exam: Clear to Ausculation Bilateral, NORMAL BREATHING PATTERN - Cardiovascular Exam Cardiovascular Exam: REGULAR RHYTHM, +S1 - GI/Abdominal Exam GI & Abdominal Exam: Soft, Normal Bowel Sounds. absent: Distended, Guarding, Tenderness, Mass, Organomegaly, Rebound - Rectal Exam Rectal Exam: NORMAL INSPECTION Additional comments: Exam repeated today. - Extremities Exam Extremities Exam: Normal Inspection. absent: Pedal Edema, Tenderness Assessment and Plan (1) Leukocytosis Status: Resolved (2) Coumadin toxicity Assessment & Plan: Improving but still INR>3.0 Status: Acute (3) Acute diverticulitis Assessment & Plan: Clinically improved though patient has not had any LLQ or flank pain. Symptoms only within the rectum. Constipation may have precipitated the findings of CT SCan Continue Hernando and yl Consider changing to po tomorrow and discharge on 10 days of total treatment. Colonoscopy by Dr Jenkins as outpatient in 8 weeks or sooner for recurrent bleeding. Status: Acute (4) Hematochezia Assessment & Plan: Likely from rupture of hemorrhoid from straining in the setting of Coumadin toxicity. No further bleeding. Status: Acute (5) Proctalgia Assessment & Plan: May be related to rectal trauma from straining, constipation, enema use?? Sitz baths bid. Stool softeners. Status: Acute
--- NOTE | 2016-11-26 14:33 | CP.PCM.PN ---
Subjective - Date & Time of Evaluation Date of Evaluation: 11/26/16 Time of Evaluation: 14:15 - Subjective Subjective: -GI consult noted and appreciated -Patient continues to have some rectal discomfort, passing gas but no b.m. yet -no abdominal pain, rectal bleeding, no nausea and vomiting -tolerated diet well Objective - Vital Signs/Intake and Output Vital Signs (last 24 hours): Temp Pulse Resp BP Pulse Ox 98.5 F 67 20 136/73 98 11/26/16 08:26 11/26/16 08:26 11/26/16 08:26 11/26/16 08:26 11/26/16 08:26 Intake and Output: 11/26/16 11/26/16 06:59 18:59 Intake Total 1684 936 Output Total 600 1400 Balance 1084 -464 - Medications Medications: Current Medications Albuterol (Ventolin Hfa 90 Mcg/Actuation (8 G)) 2 puff INH RQ6 PRN PRN Reason: Shortness of Breath Docusate Sodium (Colace) 100 mg PO BID [facility] Dorzolamide HCl (Trusopt) 0 ml OU BID [facility] Last Admin: 11/26/16 10:25 Dose: 1 g Glimepiride (Amaryl) 4 mg PO BID [facility] Last Admin: 11/26/16 10:20 Dose: 4 mg Ciprofloxacin (Cipro 400mg/200ml Dsw) 400 mg in 200 mls @ 133 mls/hr IVPB Q12H [facility] Last Admin: 11/26/16 09:18 Dose: 133 mls/hr Metronidazole (Flagyl) 500 mg in 100 mls @ 100 mls/hr IVPB Q8 [facility] Last Admin: 11/26/16 13:30 Dose: 100 mls/hr Latanoprost (Xalatan Opht) 0 ml OU HS [facility] Last Admin: 11/25/16 22:35 Dose: 2.5 ml Losartan Potassium (Cozaar) 100 mg PO DAILY [facility] Last Admin: 11/26/16 10:17 Dose: 100 mg Nebivolol (Bystolic) 10 mg PO DAILY [facility] Last Admin: 11/26/16 10:17 Dose: 10 mg Rosuvastatin Calcium (Crestor) 5 mg PO HS [facility] Last Admin: 11/25/16 23:33 Dose: 5 mg Fluticasone/Salmeterol (Advair Diskus 250/50) 1 puff INH RQ12 [facility] - Labs Labs: 11/26/16 08:15 11/26/16 08:15 PT 42.8 SECONDS (9.7-12.2) H* D 11/26/16 08:15 INR 3.6 D 11/26/16 08:15 APTT 51 SECONDS (21-34) H 11/24/16 17:42 - Constitutional Appears: No Acute Distress - Head Exam Head Exam: NORMAL INSPECTION - Eye Exam Eye Exam: Normal appearance - ENT Exam ENT Exam: Normal Exam - Neck Exam Neck Exam: Normal Inspection - Respiratory Exam Respiratory Exam: Clear to Ausculation Bilateral, NORMAL BREATHING PATTERN - Cardiovascular Exam Cardiovascular Exam: REGULAR RHYTHM, RRR, +S1, +S2 - GI/Abdominal Exam GI & Abdominal Exam: Soft, Normal Bowel Sounds - Extremities Exam Extremities Exam: Normal Inspection - Neurological Exam Neurological Exam: Alert, Awake, Normal Gait, Oriented x3 - Psychiatric Exam Psychiatric exam: Normal Affect, Normal Mood - Skin Skin Exam: Dry, Intact, Normal Color, Warm Assessment and Plan - Assessment and Plan (Free Text) Assessment: 1) Acute Diverticulitis- GI consult noted and appreciated. Continue IV antibiotics for now. 2) Rectal Bleeding-resolved- will need colonoscopy in the near future for further evaluation 3) CAD/ Cardiac arrhythmia- seems stable at this time. EKG not done yet but patient is asymtomatic from cardiac viewpoint at this time. 4) Diabetes Mellitus- on Accucheck and diabetic diet. Restarted on Glimepiride. May need to restart on insulin as previously given. 5) Hypertension- controlled on current meds 6) COPD- stable at this time 7) Elevated BUN with normal creatinine-resolved
[2016-11-26] MEDS: Latanoprost 2.5 ml Opht Soln OU SCH (21:29)
[2016-11-27] MEDS: metroNIDAZOLE IV 500 mg/100 ml 500 MG/100 ML BAG IVPB SCH ×3 (05:35→21:32)
[2016-11-27 07:52] LABS: INR 2.1
[2016-11-27] MEDS: Dorzolamide 2% Opht Sol 10ml OU SCH ×2 (09:27→18:06)
[2016-11-27] MEDS: Ciprofloxacin 400mg/200ml D5W 400 MG/200 ML BAG IVPB SCH ×2 (09:45→21:23)
--- NOTE | 2016-11-27 13:17 | CP.PCM.PN ---
Subjective - Date & Time of Evaluation Date of Evaluation: 11/27/16 Time of Evaluation: 13:14 - Subjective Subjective: COVERING DR LANGLEY Patient still with no bowel movement since admission. No bleeding. c/o swelling in Left groin. Rectal pain persists but refusing sitz baths. Objective - Vital Signs/Intake and Output Vital Signs (last 24 hours): Temp Pulse Resp BP Pulse Ox 97.8 F 89 20 155/77 H 98 11/27/16 08:22 11/27/16 08:22 11/27/16 08:22 11/27/16 08:22 11/27/16 08:22 Intake and Output: 11/27/16 11/27/16 06:59 18:59 Intake Total 700 800 Balance 700 800 - Medications Medications: Current Medications Albuterol (Ventolin Hfa 90 Mcg/Actuation (8 G)) 2 puff INH RQ6 PRN PRN Reason: Shortness of Breath Docusate Sodium (Colace) 100 mg PO BID [facility] Last Admin: 11/27/16 09:25 Dose: 100 mg Dorzolamide HCl (Trusopt) 0 ml OU BID [facility] Last Admin: 11/27/16 09:27 Dose: 1 drop Glimepiride (Amaryl) 4 mg PO BID [facility] Last Admin: 11/27/16 10:05 Dose: 4 mg Ciprofloxacin (Cipro 400mg/200ml Dsw) 400 mg in 200 mls @ 133 mls/hr IVPB Q12H [facility] Last Admin: 11/27/16 09:45 Dose: 133 mls/hr Metronidazole (Flagyl) 500 mg in 100 mls @ 100 mls/hr IVPB Q8 [facility] Last Admin: 11/27/16 05:35 Dose: 100 mls/hr Latanoprost (Xalatan Opht) 0 ml OU HS [facility] Last Admin: 11/26/16 21:29 Dose: 2.5 ml Losartan Potassium (Cozaar) 100 mg PO DAILY [facility] Last Admin: 11/27/16 09:26 Dose: 100 mg Nebivolol (Bystolic) 10 mg PO DAILY [facility] Last Admin: 11/27/16 09:27 Dose: 10 mg Rosuvastatin Calcium (Crestor) 5 mg PO HS [facility] Last Admin: 11/26/16 21:30 Dose: 5 mg Fluticasone/Salmeterol (Advair Diskus 250/50) 1 puff INH RQ12 [facility] - Labs Labs: 11/26/16 08:15 11/26/16 08:15 PT 24.6 SECONDS (9.7-12.2) H D 11/27/16 07:28 INR 2.1 D 11/27/16 07:28 APTT 51 SECONDS (21-34) H 11/24/16 17:42 - Constitutional Appears: No Acute Distress - Head Exam Head Exam: ATRAUMATIC, NORMOCEPHALIC - Respiratory Exam Respiratory Exam: Clear to Ausculation Bilateral, NORMAL BREATHING PATTERN - Cardiovascular Exam Cardiovascular Exam: REGULAR RHYTHM, +S1 - GI/Abdominal Exam GI & Abdominal Exam: Soft, Hernia, Normal Bowel Sounds. absent: Tenderness Additional comments: Bulging left inguinal hernia, reducible. Site of prior repair apparent. - Rectal Exam Rectal Exam: Deferred - Extremities Exam Extremities Exam: Normal Inspection Assessment and Plan (1) Leukocytosis Assessment & Plan: resolved Status: Resolved (2) Coumadin toxicity Assessment & Plan: INR now 2.1 and in therapeutic range Resume Coumadin as per Cardiology Status: Acute (3) Acute diverticulitis Assessment & Plan: Clinically asymptomatic but WBC responded to antibiotics Consider change to po Cipro and Flagyl in preparation for discharge Lactulose 30cc hs Colonoscopy when medically stable in approx 8 weeks. Follow up with Dr Langley if discharge planned for today. 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 Can have elective Surgical Consultation as needed. Unlikely to be source of current symptoms. Status: Chronic
[2016-11-27] MEDS: Latanoprost 2.5 ml Opht Soln OU SCH (21:24)
[2016-11-28] MEDS: metroNIDAZOLE IV 500 mg/100 ml 500 MG/100 ML BAG IVPB SCH ×2 (06:03→14:32)
[2016-11-28 07:58] VITALS: RESP 20
[2016-11-28 08:18] LABS: INR 1.7
[2016-11-28] MEDS: Ciprofloxacin 400mg/200ml D5W 400 MG/200 ML BAG IVPB SCH (10:05)
[2016-11-28] MEDS: Dorzolamide 2% Opht Sol 10ml OU SCH ×2 (10:58→18:11)
--- NOTE | 2016-11-28 11:44 | CP.PCM.PN ---
Subjective - Date & Time of Evaluation Date of Evaluation: 11/28/16 Time of Evaluation: 11:41 - Subjective Subjective: Patient denies having nausea, vomiting, abdominal pain. He has a sensation of pressure in the rectum. He has not had a bowel movement since admission, but he has not noted any additional bleeding. Objective - Vital Signs/Intake and Output Vital Signs (last 24 hours): Temp Pulse Resp BP Pulse Ox 98.2 F 75 20 121/67 98 11/28/16 07:00 11/28/16 07:00 11/28/16 07:00 11/28/16 07:00 11/28/16 07:00 Intake and Output: 11/28/16 11/28/16 06:59 18:59 Intake Total 1050 Balance 1050 - Medications Medications: Current Medications Albuterol (Ventolin Hfa 90 Mcg/Actuation (8 G)) 2 puff INH RQ6 PRN PRN Reason: Shortness of Breath Docusate Sodium (Colace) 100 mg PO BID [facility] Last Admin: 11/28/16 10:12 Dose: 100 mg Dorzolamide HCl (Trusopt) 0 ml OU BID [facility] Last Admin: 11/28/16 10:58 Dose: 1 drop Glimepiride (Amaryl) 4 mg PO BID [facility] Last Admin: 11/28/16 10:12 Dose: 4 mg Ciprofloxacin (Cipro 400mg/200ml Dsw) 400 mg in 200 mls @ 133 mls/hr IVPB Q12H [facility] Last Admin: 11/28/16 10:05 Dose: 133 mls/hr Metronidazole (Flagyl) 500 mg in 100 mls @ 100 mls/hr IVPB Q8 [facility] Last Admin: 11/28/16 06:03 Dose: 100 mls/hr Lactulose (Enulose) 20 gm PO [facility] Last Admin: 11/27/16 21:23 Dose: 20 gm Latanoprost (Xalatan Opht) 0 ml OU [facility] Last Admin: 11/27/16 21:24 Dose: 2.5 ml Losartan Potassium (Cozaar) 100 mg PO DAILY [facility] Last Admin: 11/28/16 10:13 Dose: 100 mg Nebivolol (Bystolic) 10 mg PO DAILY [facility] Last Admin: 11/28/16 10:17 Dose: 10 mg Rosuvastatin Calcium (Crestor) 5 mg PO [facility] Last Admin: 11/27/16 21:24 Dose: 5 mg Fluticasone/Salmeterol (Advair Diskus 250/50) 1 puff INH RQ12 [facility] - Labs Labs: 11/26/16 08:15 11/26/16 08:15 PT 19.4 SECONDS (9.7-12.2) H D 11/28/16 07:49 INR 1.7 11/28/16 07:49 APTT 51 SECONDS (21-34) H 11/24/16 17:42 - Constitutional Appears: No Acute Distress - Head Exam Head Exam: ATRAUMATIC, NORMOCEPHALIC - Eye Exam Eye Exam: EOMI, PERRL - Neck Exam Neck Exam: absent: Lymphadenopathy, Thyromegaly - Respiratory Exam Respiratory Exam: NORMAL BREATHING PATTERN. absent: Rales, Rhonchi, Wheezes - Cardiovascular Exam Cardiovascular Exam: REGULAR RHYTHM, +S1, +S2. absent: Gallop, Rubs, Murmur - GI/Abdominal Exam GI & Abdominal Exam: Soft, Normal Bowel Sounds. absent: Tenderness, Mass, Organomegaly - Rectal Exam Rectal Exam: Deferred - Extremities Exam Extremities Exam: absent: Calf Tenderness, Pedal Edema Assessment and Plan (1) Hematochezia Assessment & Plan: Patient has not had any further bleeding, but he has not had a bowel movement since admission, even after Colace and lactulose were administered. CT scan raised the possibility of diverticulitis. Will repeat the CT scan. Status: Acute
[2016-11-28] MEDS ORDERED: Iohexol 240 (50 ml) PO ONE (12:45)
[2016-11-28] MEDS ORDERED: Iodixanol 320 MG/ML 100 ML BOTTLE IV ONE ×2 (14:26→14:40)
--- NOTE | 2016-11-28 16:00 | CT ---
PROCEDURE: CT Abdomen and Pelvis with oral and IV contrast. HISTORY: Follow up diverticulitis; rule out obstruction COMPARISON: CT abdomen and pelvis with IV contrast performed 11/24/16 TECHNIQUE: Contiguous axial images of the abdomen and pelvis. Oral and IV contrast was administered. Coronal and Sagittal reformats generated and reviewed. Contrast dose: 100 mL Visipaque Radiation dose: Total exam DLP = 352.75 mGy-cm. This CT exam was performed using one or more of the following dose reduction techniques: Automated exposure control, adjustment of the mA and/or kV according to patient size, and/or use of iterative reconstruction technique. FINDINGS: LOWER THORAX: No visible consolidation, pleural effusion, or pneumothorax. Small hiatal hernia/distal esophageal wall thickening. LIVER: Hypoattenuation of the liver compatible with hepatic steatosis. GALLBLADDER AND BILE DUCTS: Unremarkable. PANCREAS: Atrophic pancreas. SPLEEN: Unremarkable. ADRENALS: Unremarkable. KIDNEYS AND URETERS: The kidneys enhance symmetrically. No hydronephrosis or obstructing renal calculus. BLADDER: The urinary bladder appears unremarkable. REPRODUCTIVE: Enlarged prostate gland. APPENDIX: No secondary signs of acute appendicitis. BOWEL: The stomach is nondistended. The bowel loops appear within normal limits of caliber without evidence of intestinal obstruction. Moderate to severe constipation. PERITONEUM: No significant free fluid. No definite free air. LYMPH NODES: No bulky lymphadenopathy identified. VASCULATURE: No aortic aneurysm. BONES: Multilevel degenerative changes. Osseous demineralization. Scoliosis. Increased density involving bilateral femoral heads suggests osteonecrosis. OTHER FINDINGS: Small fat containing left inguinal hernia. Coarse calcification within the right hemipelvis (series 3, image 139). Possibly calcified lymph node or region of remote fat necrosis. IMPRESSION: Moderate to severe constipation. Diverticulosis without definite CT evidence of acute diverticulitis. Hepatic steatosis. Enlarged prostate gland. Recommend correlation with PSA. Increased density involving bilateral femoral heads suggests osteonecrosis. Additional findings as above.
[2016-11-28 17:05] VITALS: BP 132/84; PULSE 91; TEMP 97.4; O2SAT 99
--- NOTE | 2016-11-28 17:42 | CP.PCM.DIS ---
Provider - Provider Date of Admission: 11/24/16 20:32 Attending physician: Lexus Herman MD Primary care physician: Virgil Consults: Donald Jenkins Time Spent in preparation of Discharge (in minutes): 45 Diagnosis - Discharge Diagnosis (1) Acute diverticulitis Status: Acute Priority: High Comment: Continue with po Cipro and Flagyl for 3 more days then d/c. (2) Hematochezia Status: Resolved Priority: Medium Comment: No further bleeding. Will need follow up GI consult OP for possible colonoscopy. (3) Coumadin toxicity Status: Resolved Priority: Medium Comment: Patient off Coumadin and Plavix since admission and latest INR is 1.7. Will resume lower dose while still on Cipro and Flagyl and go back to regular dose after antibiotics are finished. (4) Constipation Status: Resolved Priority: Medium Comment: Finally had bm after stool softeners, laxatives were given. Ct Scan showed oderate constipation. For follow up evalluation with GI for possible colonoscopy OP. (5) Dehydration Status: Resolved Priority: Low (6) Diabetes mellitus Status: Chronic Priority: Low Comment: Controlled on current meds. Continue same. (7) Essential (primary) hypertension Status: Chronic Priority: Low Comment: Controlled on current meds. (8) CAD (coronary artery disease) Status: Chronic Comment: Stable. (9) Cardiac arrhythmia Status: Resolved Priority: Low Comment: Controlled on current meds. Hospital Course - Lab Results Lab Results: Micro Results 11/25/16 01:30 Urine Urine Culture - Final No Growth (<1,000 CFU/ML) Most Recent Lab Values WBC 9.1 K/uL (4.8-10.8) 11/26/16 08:15 RBC 3.97 Mil/uL (4.40-5.90) L 11/26/16 08:15 Hgb 12.5 g/dL (12.0-18.0) 11/26/16 08:15 Hct 36.2 % (35.0-51.0) 11/26/16 08:15 MCV 91.2 fL (80.0-94.0) 11/26/16 08:15 MCH 31.4 pg (27.0-31.0) H 11/26/16 08:15 MCHC 34.5 g/dL (33.0-37.0) 11/26/16 08:15 RDW 13.6 % (11.5-14.5) 11/26/16 08:15 Plt Count 202 K/uL (130-400) 11/26/16 08:15 MPV 8.2 fL (7.2-11.7) 11/26/16 08:15 Neut % (Auto) 64.0 % (50.0-75.0) 11/26/16 08:15 Lymph % (Auto) 20.3 % (20.0-40.0) 11/26/16 08:15 [place] % (Auto) 8.9 % (0.0-10.0) 11/26/16 08:15 Eos % (Auto) 6.0 % (0.0-4.0) H 11/26/16 08:15 Baso % (Auto) 0.8 % (0.0-2.0) 11/26/16 08:15 Neut # 5.8 K/uL (1.8-7.0) 11/26/16 08:15 Lymph # 1.8 K/uL (1.0-4.3) 11/26/16 08:15 [place] # 0.8 K/uL (0.0-0.8) 11/26/16 08:15 Eos # 0.5 K/uL (0.0-0.7) 11/26/16 08:15 Baso # 0.1 K/uL (0.0-0.2) 11/26/16 08:15 Neutrophils % (Manual) 73 % (50-75) 11/24/16 17:42 Band Neutrophils % 6 % (0-2) H 11/24/16 17:42 Lymphocytes % (Manual) 8 % (20-40) L 11/24/16 17:42 Monocytes % (Manual) 10 % (0-10) 11/24/16 17:42 Eosinophils % (Manual) 3 % (0-4) 11/24/16 17:42 Platelet Estimate Normal (NORMAL) 11/24/16 17:42 Plt Clumps, EDTA Present 11/24/16 17:42 Large Platelets Present 11/24/16 17:42 Microcytosis (manual) Slight 11/24/16 17:42 ESR 10 mm/hr (0-15) 11/26/16 08:15 PT 19.4 SECONDS (9.7-12.2) H D 11/28/16 07:49 INR 1.7 11/28/16 07:49 APTT 51 SECONDS (21-34) H 11/24/16 17:42 Sodium 139 mmol/L (132-148) 11/26/16 08:15 Potassium 4.0 mmol/L (3.6-5.2) 11/26/16 08:15 Chloride 104 mmol/L (98-107) 11/26/16 08:15 Carbon Dioxide 24 mmol/L (22-30) 11/26/16 08:15 Anion Gap 15 (10-20) 11/26/16 08:15 BUN 18 mg/dL (9-20) 11/26/16 08:15 Creatinine 0.9 MG/DL (0.8-1.5) 11/26/16 08:15 Est GFR ( Amer) > 60 11/26/16 08:15 Est GFR (Non-Af Amer) > 60 11/26/16 08:15 POC Glucose (mg/dL) 75 mg/dL (65-110) 11/28/16 16:20 Random Glucose 124 mg/dL (75-110) H 11/26/16 08:15 Hemoglobin A1c 6.9 % (4.2-6.5) H 11/25/16 07:10 Calcium 9.3 mg/dl (8.6-10.4) 11/26/16 08:15 Total Bilirubin 0.9 mg/dL (0.2-1.3) 11/26/16 08:15 AST 30 U/L (17-59) 11/26/16 08:15 ALT 34 U/L (21-72) 11/26/16 08:15 Alkaline Phosphatase 43 U/L (38-126) 11/26/16 08:15 Total Protein 6.7 g/dL (6.3-8.3) 11/26/16 08:15 Albumin 3.5 g/dL (3.5-5.0) 11/26/16 08:15 Globulin 3.2 gm/dL (2.2-3.9) 11/26/16 08:15 Albumin/Globulin Ratio 1.1 (1.0-2.1) 11/26/16 08:15 Lipase 40 U/L (23-300) 11/24/16 17:42 Urine Color Yellow (YELLOW) 11/25/16 03:45 Urine Clarity Clear (Clear) 11/25/16 03:45 Urine pH 5.0 (5.0-8.0) 11/25/16 03:45 Ur Specific [place] > 1.060 (1.003-1.030) H 11/25/16 03:45 Urine Protein Negative mg/dL (NEGATIVE) 11/25/16 03:45 Urine Glucose (UA) 1+ mg/dL (Normal) H 11/25/16 03:45 Urine Ketones Negative mg/dL (NEGATIVE) 11/25/16 03:45 Urine Blood Negative (NEGATIVE) 11/25/16 03:45 Urine Nitrate Negative (NEGATIVE) 11/25/16 03:45 Urine Bilirubin Negative (NEGATIVE) 11/25/16 03:45 Urine Urobilinogen Normal mg/dL (0.2-1.0) 11/25/16 03:45 Ur Leukocyte Esterase Neg [place]/uL (Negative) 11/25/16 03:45 Urine WBC (Auto) < 1 /hpf (0-5) 11/25/16 03:45 Urine RBC (Auto) 7 /hpf (0-3) H 11/25/16 03:45 Ur Squamous Epith Cells < 1 /hpf (0-5) 11/25/16 03:45 Calcium Oxalate Crystal Occ /hpf (<OCC) H 11/24/16 17:50 Stool Occult Blood Negative (NEGATIVE) 11/25/16 20:53 - Hospital Course Hospital Course: This is a 76 y/o male with history of CAD,s/p multiple stents in the past, s/p a few ablations for paroxysmal atrial fibrillation, diabetes mellitus, hypertension and COPD who was admitted through the ER because of abdominal pain , rectal discomfort and constiption despite 2 enemas at home. This was accompanied by nausea and vomiting 2x. He thus went to the ER for further evaluation where a blood test and CT Scan of the abdomen showed a markedly elevated WBC count and a possibility of acute diverticulitis< He was then admitted and started on IV Cipro and Flagyl. He was given full liquid diet and IVF infusion. He tolerated the diet well and no further nausea or omiting wa note. GI consultation was obtained who agreed with the antibiotic and gave him stool softener and laxative for the constipation. His diet was advanced to solid and he also tolerated it well. He however continued to complain of rectal discomfort and inability to have a bowel movement. He had repeat CT Scan that did not show any further problem except for moderate constipation. He was given a laxative that made him finally move his bowel. He was thus discharged on Po antibiotic to be followed up in the office in 10 days to 2 weeks. Appt was given and patient will also be notified within 24 hours of his appt. Prognosis is fair. Discharge Exam - Head Exam Head Exam: ATRAUMATIC, NORMOCEPHALIC - Eye Exam Eye Exam: Normal appearance - ENT Exam ENT Exam: Normal Exam - Neck Exam Neck exam: Normal Inspection - Respiratory Exam Respiratory Exam: Clear to PA & Lateral, NORMAL BREATHING PATTERN - Cardiovascular Exam Cardiovascular Exam: REGULAR RHYTHM, RRR, +S1, +S2 - GI/Abdominal Exam GI & Abdominal Exam: Normal Bowel Sounds, Soft - Extremities Exam Extremities exam: normal inspection, pedal pulses present - Back Exam Back exam: NORMAL INSPECTION - Neurological Exam Neurological exam: Alert, Normal Gait, Oriented x3, Reflexes Normal - Psychiatric Exam Psychiatric exam: Normal Affect, Normal Mood - Skin Skin Exam: Dry, Intact, Normal Color, Warm Discharge Plan - Follow Up Plan Condition: FAIR Disposition: HOME/ ROUTINE Instructions: Ciprofloxacin (By mouth), Metronidazole (By mouth), Lactulose ( By mouth), Heart Failure (DC), Constipation (DC) Additional Instructions: To see me in the office on 12/07. GI follow up with Dr. Jenkins. Restart Coumadin on Mon then Monday while on Cipro and Metronidazole. Resume daily dose once he finishes Cipro and Metronidazole. Referrals: Lexus Herman MD [Staff Provider] - Christian Jenkins MD [Staff Provider] - Clinical Quality Measures - CQM - Stroke Antithrombotic Prescribed: Yes Anticoagulation Prescribed for Atrial Flutter, Atrial Fibrillation and History of:: Yes Statin prescribed: Yes
--- NOTE | 2016-12-09 19:09 | CARD ---
APPROVED REPORT EKG Measurement Heart [id number] CT [id number] <Conclusion> Atrial pacemaker. ST & T wave abnormality, nonspecific Abnormal ECG
== END 2016-11-28 20:08 | disposition home or self-care (01) | DRG 392 ==
LOC: C.ER 17:00 → C.9E 20:32 → C.3T 22:50
PROVIDERS: ADMIT Internal Medicine Cardiovascular Disease; ATTEND Internal Medicine Cardiovascular Disease
DX: K57.92 Diverticulitis of intestine, part unspecified, without perforation or abscess without bleeding (principal); K92.1 Melena; E86.0 Dehydration; J44.9 Chronic obstructive pulmonary disease, unspecified; I48.0 Paroxysmal atrial fibrillation; E11.9 Type 2 diabetes mellitus without complications; I50.9 Heart failure, unspecified; I11.0 Hypertensive heart disease with heart failure; K59.00 Constipation, unspecified; D72.829 Elevated white blood cell count, unspecified; T45.511A Poisoning by anticoagulants, accidental (unintentional), initial encounter; T45.515A Adverse effect of anticoagulants, initial encounter; I25.10 Atherosclerotic heart disease of native coronary artery without angina pectoris; K40.90 Unilateral inguinal hernia, without obstruction or gangrene, not specified as recurrent; F17.210 Nicotine dependence, cigarettes, uncomplicated

== ENCOUNTER 2017-01-23 07:01 | Day surgery (SDC) | payer MEDICARE, BC ==
[2017-01-23 07:33] VITALS: BMI 25.7
--- NOTE | 2017-01-23 08:57 | CP.SDSHP ---
Same Day Surgery H & P - History Proposed Procedure: Colonoscopy Pre-Op Diagnosis: Lower GI bleeding - Previous Medical/Surgical History Cardiac: Arrhythmia Comments: Atrial flutter Previous Surgical History: Inguinal hernia repair, cardiac catheterization, RF ablation, appendectomy - Allergies Allergies: Allergies Penicillins Allergy (Verified 11/24/16 17:12) - Current Medications Current Medications: See reconciliation sheet - Physical Exam General Appearance: WD WN male in NAD Vital Signs: Vital Signs 01/23/17 07:51 Temperature 97.5 F L Pulse Rate 85 Respiratory 19 Rate Blood Pressure 120/55 L O2 Sat by Pulse 98 Oximetry Mental Status: Alert & Oriented x3 Neuro: WNL Heart: WNL Lungs: WNL GI: WNL - {Optional Preform as Required} Abdomen: WNL - Impression Impression: Lower GI bleeding Pt. Evaluated Today:Candidate for Anesthesia & Procedure: Yes - Date & Time Date: 01/23/17 Time: 08:57 Short Stay Discharge - Short Stay Discharge Admitting Diagnosis/Reason for Visit: RECTAL BLEEDING Disposition: HOME/ ROUTINE
[2017-01-23] MEDS ORDERED: Propofol 10 mg/ml Inj (20 ML) ONE (09:09)
[2017-01-23] MEDS ORDERED: Lactated Ringer's 1,000 ML IV ONE (09:15)
[2017-01-23] MEDS ORDERED: Lidocaine Hydrochloride 5 ML INJ ONE (09:17)
[2017-01-23] MEDS ORDERED: Lactated Ringer's 500 ML IV SCH (09:30)
[2017-01-23 10:25] VITALS: TEMP 98; O2SAT 100
[2017-01-23 10:57] VITALS: BP 113/62; PULSE 60; RESP 12
== END 2017-01-23 13:40 | disposition home or self-care (01) ==
LOC: C.ENDO 07:01
PROVIDERS: ATTEND Internal Medicine Gastroenterology
DX: D12.2 Benign neoplasm of ascending colon (principal); K57.90 Diverticulosis of intestine, part unspecified, without perforation or abscess without bleeding; D12.5 Benign neoplasm of sigmoid colon
CPT/HCPCS: 45388; 82948; 88305; J2704; J3010; J7120

== ENCOUNTER 2018-08-20 08:45 | Outpatient (CLI) | payer MEDICARE | END 2018-08-20 08:46 | disposition home or self-care (01) | LOC: C.CARD 08:45 | DX: I25.10 Atherosclerotic heart disease of native coronary artery without angina pectoris (principal); I48.92 Unspecified atrial flutter; I50.9 Heart failure, unspecified; Z95.0 Presence of cardiac pacemaker ==